=== PATIENT | female | born 1975 | race Caucasian/White ===

== ENCOUNTER → 2023-05-27 14:53 | Outpatient (REF) | payer OTHER, SELFPAY | LOC: WDC 14:53 | PROVIDERS: ATTENDING PHYSICIAN Family Medicine | DX: Z12.31 Encounter for screening mammogram for malignant neoplasm of breast (principal) | CPT/HCPCS: 77063; 77067 ==

== ENCOUNTER → 2023-06-08 17:11 | Outpatient (REF) | payer OTHER, SELFPAY | LOC: RAD 17:11 | PROVIDERS: ATTENDING PHYSICIAN Psychiatry & Neurology Neurology; FAMILY PHYSICIAN Family Medicine | DX: M54.2 Cervicalgia (principal) | CPT/HCPCS: 72050 ==

== ENCOUNTER → 2023-07-30 19:02 | Outpatient (REF) | payer OTHER, SELFPAY | LOC: MRI 19:02 | PROVIDERS: ATTENDING PHYSICIAN Psychiatry & Neurology Neurology; FAMILY PHYSICIAN Family Medicine | DX: M54.12 Radiculopathy, cervical region (principal); M54.2 Cervicalgia; R42 Dizziness and giddiness; G43.709 Chronic migraine without aura, not intractable, without status migrainosus | CPT/HCPCS: 70551; 72141 ==